=== PATIENT | male | born 1975 | race Caucasian/White ===

== ENCOUNTER 2019-09-25 15:03 | Emergency (ER) | payer BC ==
[2019-09-25] MEDS ORDERED: CEPHALEXIN500 MG PO (17:21)
[2019-09-25] MEDS ORDERED: LORTAB 1010 MG PO (17:56)
[2019-09-25 18:00] VITALS: BP 139/69
== END 2019-09-25 18:00 | disposition home or self-care (01) | DRG 566 ==
LOC: ED 15:03
PROC: 0HQGXZZ Repair Left Hand Skin, External Approach (ICD-10-PCS; principal; 2019-09-25)
DX: S66.222A Laceration of extensor muscle, fascia and tendon of left thumb at wrist and hand level, initial encounter (principal); S61.012A Laceration without foreign body of left thumb without damage to nail, initial encounter; S61.211A Laceration without foreign body of left index finger without damage to nail, initial encounter; H91.90 Unspecified hearing loss, unspecified ear; F17.210 Nicotine dependence, cigarettes, uncomplicated; W29.3XXA Contact with powered garden and outdoor hand tools and machinery, initial encounter; Y93.89 Activity, other specified; Y92.009 Unspecified place in unspecified non-institutional (private) residence as the place of occurrence of the external cause